=== PATIENT | male | born 1970 | race Caucasian/White ===

== ENCOUNTER 2020-04-23 18:25 | Emergency (ER) | payer MEDICAID, SELFPAY ==
[2020-04-23 19:38] VITALS: BP 123/74; PULSE 65; RESP 18; O2SAT 99; BMI 21.8
[2020-04-23 20:05] VITALS: BP 123/74; PULSE 65; RESP 18; O2SAT 99
--- NOTE | 2020-04-23 20:51 | ED_ITS ---
HPI - Psych General Chief Complaint: Psychiatric Symptoms <Arsalan Jansen MD - Last Filed: 04/24/20 01:14> Stated Complaint: SI <Arsalan Jansen MD - Last Filed: 04/24/20 01:14> Time Seen by Provider: 04/23/20 20:47 <Arsalan Jansen MD - Last Filed: 04/24/20 01:14> Source: patient <Arsalan Jansen MD - Last Filed: 04/24/20 01:14> Mode of arrival: EMS <Arsalan Jansen MD - Last Filed: 04/24/20 01:14> Limitations: no limitations <Arsalan Jansen MD - Last Filed: 04/24/20 01:14> History of Present Illness HPI Narrative: Patient states that 7 hours ago he tried to OD on addarrall and clonidine <Arsalan Jansen MD - Last Filed: 04/24/20 01:14> MD complaint: suicidal ideation and feels depressed <Arsalan Jansen MD - Last Filed: 04/24/20 01:14> Onset (ago): month(s) <Arsalan Jansen MD - Last Filed: 04/24/20 01:14> Duration: constant <Arsalan Jansen MD - Last Filed: 04/24/20 01:14> History of same: Yes <Arsalan Jansne MD - Last Filed: 04/24/20 01:14> Relieving factors: none <Arsalan Jansen MD - Last Filed: 04/24/20 01:14> Context: recent alcohol abuse and recent drug abuse <Arsalan Jansen MD - Last Filed: 04/24/20 01:14> Associated psychiatric symptoms: depression, suicidal ideation, racing thoughts and auditory hallucinations <Arsalan Jansen MD - Last Filed: 04/24/20 01:14> If self harm: admits thoughts of self harm <Arsalan Jansen MD - Last Filed: 04/24/20 01:14> Related Data Allergies/Adverse Reactions: Allergies Allergy/AdvReac Type Severity Reaction Status Date / Time No Known Allergies Allergy Verified 04/23/20 20:50 <Arsalan Jansen MD - Last Filed: 04/24/20 01:14> Review of Systems Constitutional: Constitutional: Reports no additional constitutional complaints <Arsalan Jansen MD - Last Filed: 04/24/20 01:14> Eyes: Eyes: Reports no additional eye complaints <Arsalan Jansen MD - Last Filed: 04/24/20 01:14> ENT: Denies dizziness <Arsalan Jansen MD - Last Filed: 04/24/20 01:14> Cardiovascular: Cardiovascular: Reports no additional cardiovascular complaints <Arsalan Jansen MD - Last Filed: 04/24/20 01:14> Respiratory: Respiratory: Reports as per HPI <Arsalan Jansen MD - Last Filed: 04/24/20 01:14> Gastrointestinal: Gastrointestinal: Reports no additional gastrointestinal complaints <Arsalan Jansen MD - Last Filed: 04/24/20 01:14> Musculoskeletal: Musculoskeletal: Reports no additional musculoskeletal complaints <Arsalan Jansen MD - Last Filed: 04/24/20 01:14> Integumentary/Breasts: Skin/Breast: Denies rash <Arsalan Jansen MD - Last Filed: 04/24/20 01:14> Neurologic: Reports system reviewed and no additional complaints, except as documented, Denies dizziness and Denies Sensory deficit (Neuro) <Arsalan Jansen MD - Last Filed: 04/24/20 01:14> Psychiatric: Psychiatric: Denies anxiety <Arsalan Jansen MD - Last Filed: 04/24/20 01:14> [facility] Social History Social History: Social History Alcohol intake: former Smoking Status: Current every day smoker Smoked in Last 30 Days: Yes Use of substances other than those prescribed or required for medical reasons: No Advance Directives: No Advance Directives Information Provided: Yes <Arsalan Jansen MD - Last Filed: 04/24/20 01:14> Physical Exam Vital Signs: Vital Signs: Last Vital Signs Temp 97.9 F 04/23/20 22:48 Pulse 53 04/23/20 22:48 Resp 18 04/23/20 22:48 BP 100/56 L 04/23/20 22:48 Pulse Ox 95 04/23/20 22:48 Body Mass Index 21.8 <Arsalan Jansen MD - Last Filed: 04/24/20 01:14> Vital Signs: Last Vital Signs Temp 97.9 F 04/23/20 22:48 Pulse 53 04/23/20 22:48 Resp 18 04/23/20 22:48 BP 100/56 L 04/23/20 22:48 Pulse Ox 95 04/23/20 22:48 Body Mass Index 21.8 <Brandan Robertson NP - Last Filed: 04/24/20 08:29> Const: General: healthy appearing <Arsalan Jansen MD - Last Filed: 04/24/20 01:14> Nutritional Appearance: average body habitus <Arsalan Jansen MD - Last Filed: 04/24/20 01:14> Orientation/consciousness: oriented to person and patient oriented x3 <Arsalan Jansen MD - Last Filed: 04/24/20 01:14> Limitations: no limitations <Arsalan Jansen MD - Last Filed: 04/24/20 01:14> HENMT: Head: Yes normal to inspection <Arsalan Jansen MD - Last Filed: 04/24/20 01:14> Ears: external ears normal <Arsalan Jansen MD - Last Filed: 04/24/20 01:14> General nose exam: Normal external nose present <Arsalan Jansen MD - Last Filed: 04/24/20 01:14> Mouth: Normal oral and palatal mucosa present and oropharynx normal <Arsalan Jansen MD - Last Filed: 04/24/20 01:14> Throat: Yes posterior oropharynx normal <Arsalan Jansen MD - Last Filed: 04/24/20 01:14> Eyes: General: appearance normal, both eyes and all related structures <Arsalan Jansen MD - Last Filed: 04/24/20 01:14> Neck: Other: supple <Arsalan Jansen MD - Last Filed: 04/24/20 01:14> Neck: Yes normal visual inspection <Arsalan Jansen MD - Last Filed: 04/24/20 01:14> Chest: Chest palpation & inspection: normal inspection of the chest <Arsalan Jansen MD - Last Filed: 04/24/20 01:14> Resp: Auscultation: clear to auscultation bilaterally <Arsalan Jansen MD - Last Filed: 04/24/20 01:14> Cardio: Jugular venous distension: no JVD <Arsalan Jansen MD - Last Filed: 04/24/20 01:14> Rate: regular rate <Arsalan Jansen MD - Last Filed: 04/24/20 01:14> Rhythm: regular rhythm <Arsalan Jansen MD - Last Filed: 04/24/20 01:14> Heart sounds: S1 normal heart sound present and S2 normal heart sound present <Arsalan Jansen MD - Last Filed: 04/24/20 01:14> GI: Inspection: Yes normal to inspection <Arsalan Jansen MD - Last Filed: 04/24/20 01:14> Palpation (GI): Soft to palpation, nontender and No hepatosplenomegaly present <Arsalan Jansen MD - Last Filed: 04/24/20 01:14> Auscultation: normal bowel sounds <Arsalan Jansen MD - Last Filed: 04/24/20 01:14> : General: Yes no CVA tenderness <Arsalan Jansen MD - Last Filed: 04/24/20 01:14> Back/Spine/Pelvis: Back: no CVA tenderness <Arsalan Jansen MD - Last Filed: 04/24/20 01:14> Skin: General skin exam: no rashes or lesions noted <Arsalan Jansen MD - Last Filed: 04/24/20 01:14> Neuro: General: oriented to person and patient oriented x3 <Arsalan Jansen MD - Last Filed: 04/24/20 01:14> Cranial nerves: Yes CN's II-XII intact bilaterally <Arsalan Jansen MD - Last Filed: 04/24/20 01:14> Motor exam (neuro): 5/5 motor strength present throughout <Arsalan Jansen MD - Last Filed: 04/24/20 01:14> Sensory Exam: No Sensory deficit (Neuro) <Arsalan Jansen MD - Last Filed: 04/24/20 01:14> Extrem: General: Yes normal to inspection <Arsalan Jansen MD - Last Filed: 04/24/20 01:14> Psych: Appearance: grossly normal <Arsalan Jansen MD - Last Filed: 04/24/20 01:14> Course Course Course Narrative: Patient placed in physician observation at 1:15am The indication for observation is that the patient needs more time to see if his depression improves or he will need to be admitted. At this time the patient is well developed well nourished, lungs clear, CV RRR, abd nontender, neuro is intact. Seen by crisis who at this time feels he will need admission and bedsearch, will reevaluate in the morning <Arsalan Jansen MD - Last Filed: 04/24/20 01:14> Reevaluation(s) Reevaluation #1: [id number] 04/24/2020 Physician observation to continue, Section 12 bed search in progress. Otherwise hemodynamically stable, slept over the course of night and no complaints. VSS, NAD, PWD. <Brandan Robertson NP - Last Filed: 04/24/20 08:29> MDM - Psych Lab Data Result diagrams: : 04/23/20 21:12 04/23/20 21:12 <Arsalan Jansen MD - Last Filed: 04/24/20 01:14> Labs: Lab Results 04/23/20 04/23/20 04/23/20 Range/Units 20:15 21:12 21:12 WBC 2.7 L (4.8-10.8) X10*3/uL RBC 4.57 L (4.60-5.80) X10*6/uL Hgb 10.3 L (14.0-18.0) g/dl Hct 32.1 L (42-52) % MCV 70.2 L (80-98) fL MCH 22.5 L (27.0-33.0) pg MCHC 32.1 (31.0-36.0) g/dl RDW 21.6 H (11.0-16.0) % Plt Count 41 L (160-400) X10*3/uL MPV Not Reportable Immature Gran % (Auto) 0.4 (0.0-0.4) % Neut % (Auto) 65.6 (45-73) % Lymph % (Auto) 21.5 (20-40) % [place] % (Auto) 7.5 (2-11) % Eos % (Auto) 4.2 H (0-4) % Baso % (Auto) 0.8 (0-2) % Lymph # (Auto) 0.6 L (1.2-4.9) X10*3/uL [place] # (Auto) 0.2 (0.1-1.2) X10*3/uL Eos # (Auto) 0.1 (0.0-0.4) X10*3/uL Baso # (Auto) 0.0 (0.0-0.2) X10*3/uL Abs Immat Gran (auto) 0.01 (0.00-0.03) X10*3/uL Absolute Neuts (auto) 1.7 L (2.0-8.3) X10*3/uL Absolute Nucleated RBC 0.000 (0.0-0.012) X10*3/uL Nucleated RBC % (auto) 0.0 (0.0-0.2) /100WBC Smear Tech's Comments VERIFIED Sodium 135 (135-145) mmol/L Potassium 3.7 (3.3-5.1) mmol/L Chloride 105 (96-108) mmol/L Carbon Dioxide 26 (22-29) mmol/L Anion Gap 8 L (12-20) BUN 11 (9-16) mg/dL Creatinine 0.84 (0.5-1.4) mg/dL Estim Creat Clear Calc 116.0 Estimated GFR > 60 Random Glucose 178 H (60-115) mg/dL Calcium 8.3 L (8.4-10.2) mg/dL Total Bilirubin 1.8 H (0.0-1.0) mg/dL AST 48 H (5-37) U/L ALT 33 (0-40) U/L Alkaline Phosphatase 86 (39-117) U/L Total Protein 7.4 (6.5-8.0) g/dL Albumin 3.2 L (3.5-5.0) g/dL Salicylates < 5.0 L (15-30) mg/dL Urine Opiates Screen Not Detected (Not Detect) Acetaminophen < 1 (<30) mcg/mL Ur Barbiturates Screen Not Detected (Not Detect) Ur Phencyclidine Scrn Not Detected (Not Detect) Ur Amphetamines Screen POSITIVE H (Not Detect) U Benzodiazepines Scrn Not Detected (Not Detect) Urine Cocaine Screen Not Detected (Not Detect) U Marijuana (THC) Screen POSITIVE H (Not Detect) Ethyl Alcohol mg/dL COVID-19 ([facility]EFERSON) (Negative) COVID-19 Clin Com 04/23/20 04/24/20 Range/Units 21:12 03:27 WBC (4.8-10.8) X10*3/uL RBC (4.60-5.80) X10*6/uL Hgb (14.0-18.0) g/dl Hct (42-52) % MCV (80-98) fL MCH (27.0-33.0) pg MCHC (31.0-36.0) g/dl RDW (11.0-16.0) % Plt Count (160-400) X10*3/uL MPV Immature Gran % (Auto) (0.0-0.4) % Neut % (Auto) (45-73) % Lymph % (Auto) (20-40) % [place] % (Auto) (2-11) % Eos % (Auto) (0-4) % Baso % (Auto) (0-2) % Lymph # (Auto) (1.2-4.9) X10*3/uL [place] # (Auto) (0.1-1.2) X10*3/uL Eos # (Auto) (0.0-0.4) X10*3/uL Baso # (Auto) (0.0-0.2) X10*3/uL Abs Immat Gran (auto) (0.00-0.03) X10*3/uL Absolute Neuts (auto) (2.0-8.3) X10*3/uL Absolute Nucleated RBC (0.0-0.012) X10*3/uL Nucleated RBC % (auto) (0.0-0.2) /100WBC Smear Tech's Comments Sodium (135-145) mmol/L Potassium (3.3-5.1) mmol/L Chloride (96-108) mmol/L Carbon Dioxide (22-29) mmol/L Anion Gap (12-20) BUN (9-16) mg/dL Creatinine (0.5-1.4) mg/dL Estim Creat Clear Calc Estimated GFR Random Glucose (60-115) mg/dL Calcium (8.4-10.2) mg/dL Total Bilirubin (0.0-1.0) mg/dL AST (5-37) U/L ALT (0-40) U/L Alkaline Phosphatase (39-117) U/L Total Protein (6.5-8.0) g/dL Albumin (3.5-5.0) g/dL Salicylates (15-30) mg/dL Urine Opiates Screen (Not Detect) Acetaminophen (<30) mcg/mL Ur Barbiturates Screen (Not Detect) Ur Phencyclidine Scrn (Not Detect) Ur Amphetamines Screen (Not Detect) U Benzodiazepines Scrn (Not Detect) Urine Cocaine Screen (Not Detect) U Marijuana (THC) Screen (Not Detect) Ethyl Alcohol < 10 mg/dL COVID-19 ([facility]EFERSON) Negative (Negative) COVID-19 Clin Com See Note <Arsalan Jansen MD - Last Filed: 04/24/20 01:14> Lab Results 04/23/20 04/23/20 04/23/20 Range/Units 20:15 21:12 21:12 WBC 2.7 L (4.8-10.8) X10*3/uL RBC 4.57 L (4.60-5.80) X10*6/uL Hgb 10.3 L (14.0-18.0) g/dl Hct 32.1 L (42-52) % MCV 70.2 L (80-98) fL MCH 22.5 L (27.0-33.0) pg MCHC 32.1 (31.0-36.0) g/dl RDW 21.6 H (11.0-16.0) % Plt Count 41 L (160-400) X10*3/uL MPV Not Reportable Immature Gran % (Auto) 0.4 (0.0-0.4) % Neut % (Auto) 65.6 (45-73) % Lymph % (Auto) 21.5 (20-40) % [place] % (Auto) 7.5 (2-11) % Eos % (Auto) 4.2 H (0-4) % Baso % (Auto) 0.8 (0-2) % Lymph # (Auto) 0.6 L (1.2-4.9) X10*3/uL [place] # (Auto) 0.2 (0.1-1.2) X10*3/uL Eos # (Auto) 0.1 (0.0-0.4) X10*3/uL Baso # (Auto) 0.0 (0.0-0.2) X10*3/uL Abs Immat Gran (auto) 0.01 (0.00-0.03) X10*3/uL Absolute Neuts (auto) 1.7 L (2.0-8.3) X10*3/uL Absolute Nucleated RBC 0.000 (0.0-0.012) X10*3/uL Nucleated RBC % (auto) 0.0 (0.0-0.2) /100WBC Smear Tech's Comments VERIFIED Sodium 135 (135-145) mmol/L Potassium 3.7 (3.3-5.1) mmol/L Chloride 105 (96-108) mmol/L Carbon Dioxide 26 (22-29) mmol/L Anion Gap 8 L (12-20) BUN 11 (9-16) mg/dL Creatinine 0.84 (0.5-1.4) mg/dL Estim Creat Clear Calc 116.0 Estimated GFR > 60 Random Glucose 178 H (60-115) mg/dL Calcium 8.3 L (8.4-10.2) mg/dL Total Bilirubin 1.8 H (0.0-1.0) mg/dL AST 48 H (5-37) U/L ALT 33 (0-40) U/L Alkaline Phosphatase 86 (39-117) U/L Total Protein 7.4 (6.5-8.0) g/dL Albumin 3.2 L (3.5-5.0) g/dL Salicylates < 5.0 L (15-30) mg/dL Urine Opiates Screen Not Detected (Not Detect) Acetaminophen < 1 (<30) mcg/mL Ur Barbiturates Screen Not Detected (Not Detect) Ur Phencyclidine Scrn Not Detected (Not Detect) Ur Amphetamines Screen POSITIVE H (Not Detect) U Benzodiazepines Scrn Not Detected (Not Detect) Urine Cocaine Screen Not Detected (Not Detect) U Marijuana (THC) Screen POSITIVE H (Not Detect) Ethyl Alcohol mg/dL COVID-19 ([facility]EFERSON) (Negative) COVID-19 Clin Com 04/23/20 04/24/20 Range/Units 21:12 03:27 WBC (4.8-10.8) X10*3/uL RBC (4.60-5.80) X10*6/uL Hgb (14.0-18.0) g/dl Hct (42-52) % MCV (80-98) fL MCH (27.0-33.0) pg MCHC (31.0-36.0) g/dl RDW (11.0-16.0) % Plt Count (160-400) X10*3/uL MPV Immature Gran % (Auto) (0.0-0.4) % Neut % (Auto) (45-73) % Lymph % (Auto) (20-40) % [place] % (Auto) (2-11) % Eos % (Auto) (0-4) % Baso % (Auto) (0-2) % Lymph # (Auto) (1.2-4.9) X10*3/uL [place] # (Auto) (0.1-1.2) X10*3/uL Eos # (Auto) (0.0-0.4) X10*3/uL Baso # (Auto) (0.0-0.2) X10*3/uL Abs Immat Gran (auto) (0.00-0.03) X10*3/uL Absolute Neuts (auto) (2.0-8.3) X10*3/uL Absolute Nucleated RBC (0.0-0.012) X10*3/uL Nucleated RBC % (auto) (0.0-0.2) /100WBC Smear Tech's Comments Sodium (135-145) mmol/L Potassium (3.3-5.1) mmol/L Chloride (96-108) mmol/L Carbon Dioxide (22-29) mmol/L Anion Gap (12-20) BUN (9-16) mg/dL Creatinine (0.5-1.4) mg/dL Estim Creat Clear Calc Estimated GFR Random Glucose (60-115) mg/dL Calcium (8.4-10.2) mg/dL Total Bilirubin (0.0-1.0) mg/dL AST (5-37) U/L ALT (0-40) U/L Alkaline Phosphatase (39-117) U/L Total Protein (6.5-8.0) g/dL Albumin (3.5-5.0) g/dL Salicylates (15-30) mg/dL Urine Opiates Screen (Not Detect) Acetaminophen (<30) mcg/mL Ur Barbiturates Screen (Not Detect) Ur Phencyclidine Scrn (Not Detect) Ur Amphetamines Screen (Not Detect) U Benzodiazepines Scrn (Not Detect) Urine Cocaine Screen (Not Detect) U Marijuana (THC) Screen (Not Detect) Ethyl Alcohol < 10 mg/dL COVID-19 ([facility]) Negative (Negative) COVID-19 Clin Com See Note <Brandan Robertson NP - Last Filed: 04/24/20 08:29>
[2020-04-23 21:18] LABS: Amphetamine Screen Urine POSITIVE (Not Detect); Barbiturates, Urine Not Detected (Not Detect); Benzodiazepines Screen Urine Not Detected (Not Detect); Cannabinoid Screen Urine POSITIVE (Not Detect); Cocaine Screen Urine Not Detected (Not Detect); Opiate Screen Urine Not Detected (Not Detect); Phencyclidine Screen Urine Not Detected (Not Detect)
[2020-04-23 21:19] LABS: Basophils Percent Auto 0.8 % (0-2); Imm Gran Abs Auto 0.01 X10*3/uL (0.00-0.03); Imm Gran Pct Auto 0.4 % (0.0-0.4); Lymphocytes Percent Auto 21.5 % (20-40); MANUAL DIFF FLAG SCAN; Mean Corpuscular Hemoglobin 22.5 pg (27.0-33.0); SCAN SMEAR FLAG 1
[2020-04-23 21:21] LABS: Eosinophils Absolute Auto 0.1 X10*3/uL (0.0-0.4); Eosinophils Percent Auto 4.2 % (0-4); Hematocrit 32.1 % (42-52); Hemoglobin 10.3 g/dl (14.0-18.0); Lymphocytes Absolute Auto 0.6 X10*3/uL (1.2-4.9); Mean Corpuscular HGB Conc 32.1 g/dl (31.0-36.0); Mean Corpuscular Volume 70.2 fL (80-98); Monocytes Absolute Auto 0.2 X10*3/uL (0.1-1.2); Monocytes Percent Auto 7.5 % (2-11); Neutrophils Absolute Auto 1.7 X10*3/uL (2.0-8.3); Neutrophils Percent Auto 65.6 % (45-73); Red Blood Count 4.57 X10*6/uL (4.60-5.80); Red Cell Distribution Width 21.6 % (11.0-16.0); White Blood Count 2.7 X10*3/uL (4.8-10.8)
[2020-04-23 21:23] LABS: PLT ABN DIST 1; Platelet Count 41 X10*3/uL (160-400)
[2020-04-23 21:38] LABS: Ethanol < 10 mg/dL
[2020-04-23 21:43] LABS: SLIDE REVIEW VERIFIED
[2020-04-23 21:44] LABS: Acetaminophen LAB < 1 mcg/mL (<30); Alanine Aminotransferase 33 U/L (0-40); Albumin Level 3.2 g/dL (3.5-5.0); Alkaline Phosphatase 86 U/L (39-117); Anion Gap 8 (12-20); Aspartate Amino Transferase 48 U/L (5-37); Bilirubin Total 1.8 mg/dL (0.0-1.0); Blood Urea Nitrogen 11 mg/dL (9-16); Calcium 8.3 mg/dL (8.4-10.2); Carbon Dioxide 26 mmol/L (22-29); Chloride 105 mmol/L (96-108); Estimated Glomerular Filt Rate > 60; Glucose Random 178 mg/dL (60-115); Potassium 3.7 mmol/L (3.3-5.1); Salicylate < 5.0 mg/dL (15-30); Sodium 135 mmol/L (135-145); Total Protein 7.4 g/dL (6.5-8.0)
[2020-04-23 22:48] VITALS: BP 100/56; PULSE 53; RESP 18; TEMP 36.6; O2SAT 95
--- NOTE | 2020-04-23 23:00 | PC.NURSE ---
[facility] faxed and called for crisis consult.
--- NOTE | 2020-04-24 00:19 | PC.NURSE ---
PT stated that he picks up Clonidine from [facility] pharmacy. This nurse called [facility] to complete med rec and the pharmacist stated that this PT has not picked up any medications from [facility] since May 2018.
--- NOTE | 2020-04-24 00:35 | PC.NURSE ---
[facility] at bed side.
[2020-04-24 04:10] LABS: COVID-19 Test Negative (Negative); IDNOW Serial# 9DD0AD1C
--- NOTE | 2020-04-24 05:59 | PC.NURSE ---
PT is inpatient bed search per [facility].
[2020-04-24 10:00] VITALS: RESP 12
--- NOTE | 2020-04-24 11:51 | PC.NURSE ---
[facility] contacted to inquire status of pt's bed search. Search remains active at this time, with no further updates to report.
--- NOTE | 2020-04-24 12:23 | PC.NURSE ---
Report recieved. PT ambulated to pod with steady gait. Pt somewhat restless, asked if he can leave, plan of care explained.
[2020-04-24 14:07] VITALS: BP 120/70; PULSE 71; RESP 16; TEMP 36.9; O2SAT 99
--- NOTE | 2020-04-24 14:25 | PC.NURSE ---
Pt accetped to [facility] nurse to nurse completed with deidra Castillo to be transferred for 4pm arrival.
== END 2020-04-24 15:21 ==
PROVIDERS: Emergency Provider Emergency Medicine
DX: T43.622A Poisoning by amphetamines, intentional self-harm, initial encounter (principal); T46.5X2A Poisoning by other antihypertensive drugs, intentional self-harm, initial encounter; Y92.9 Unspecified place or not applicable; F32.9 Major depressive disorder, single episode, unspecified; R45.851 Suicidal ideations; Z20.822 Contact with and (suspected) exposure to COVID-19; R44.0 Auditory hallucinations; F17.200 Nicotine dependence, unspecified, uncomplicated
CPT/HCPCS: 36415; 80053; 80143; 80179; 80307; 80320; 85025; 87635; 99285